=== PATIENT | female | born 1955 | race Hispanic/Latino ===

== ENCOUNTER → 2021-06-20 | Day surgery (SDC) | payer OTHER ==
[~2021-06-20] MED LIST: AMLODIPINE-BEN1 EAC4 PO; ATORVASTATIN CA20 MG PO; GLIPIZIDE5 MG PO; JARDIANCE10 MG PO; OMEPRAZOLE40 MG PO; PIOGLITAZONE HC30 MG PO; PROVENTIL HFA6.7 GM INH; TRICOR48 MG PO
[2021-06-20 10:50] VITALS: BP 132/76
== END | disposition home or self-care (01) ==
LOC: OR 07:22 → EDSEX 11:00 → EEVIPCON 11:00
PROVIDERS: ATTEND Internal Medicine Gastroenterology
DX: Z12.11 Encounter for screening for malignant neoplasm of colon (principal); K64.8 Other hemorrhoids; K21.9 Gastro-esophageal reflux disease without esophagitis; Z71.3 Dietary counseling and surveillance; I10 Essential (primary) hypertension; E11.9 Type 2 diabetes mellitus without complications; E66.9 Obesity, unspecified; R06.02 Shortness of breath; Z01.810 Encounter for preprocedural cardiovascular examination; Z01.812 Encounter for preprocedural laboratory examination; Z20.822 Contact with and (suspected) exposure to COVID-19; Z79.84 Long term (current) use of oral hypoglycemic drugs; Z68.36 Body mass index [BMI] 36.0-36.9, adult; Z86.73 Personal history of transient ischemic attack (TIA), and cerebral infarction without residual deficits
CPT/HCPCS: 36415; 45378; 82948; 93005; U0002